=== PATIENT | male | born 1950 | race Caucasian/White ===

== ENCOUNTER 2022-06-03 11:27 | Emergency (ER) | payer OTHER ==
[~2022-06-03] VITALS: Ht 177.8 cm; Wt 74.8 kg
[2022-06-03] MEDS ORDERED: LOSA50 PO (13:04)
[2022-06-03] MEDS ORDERED: EUTHYROX125 MCG PO (13:04)
[2022-06-03] MEDS ORDERED: ATOR80 PO (13:04)
[2022-06-03] MEDS ORDERED: HYDCHL25 PO (13:05)
[2022-06-03] MEDS ORDERED: FISH OIL 1,2001 EAC4 PO (13:06)
[2022-06-03] MEDS ORDERED: CO Q10100 MG PO (13:07)
[2022-06-03 14:48] LABS: BASOPHILS ABSOLUTE AUTO 0.04 K/mm3 (0.00-0.23); BASOPHILS PERCENT AUTO 1 % (0-2); EOSINOPHILS ABSOLUTE AUTO 0.06 K/mm3 (0.00-0.68); EOSINOPHILS PERCENT AUTO 1 % (0-6); Hematocrit 47.1 % (37.0-53.0); Hemoglobin 16.7 g/dL (13.5-17.5); IMMATURE GRAN ABSOLUTE AUTO 0.01 K/mm3 (0.00-0.10); IMMATURE GRAN PERCENT AUTO 0 % (0-1); LYMPHOCYTES ABSOLUTE AUTO 1.68 K/mm3 (0.84-5.20); LYMPHOCYTES PERCENT AUTO 27 % (21-46); MONOCYTES PERCENT AUTO 10 % (4-13); Mean Corpuscular HGB 34.1 pg (26.0-34.0); Mean Corpuscular HGB Conc 35.5 g/dL (31.5-36.5); Mean Corpuscular Volume 96 fL (80-100); Mean Platelet Volume 8.9 fL (9.1-12.4); NEUTROPHILS ABSOLUTE AUTO 3.83 K/mm3 (1.96-9.15); NEUTROPHILS PERCENT AUTO 62 % (41-73); Platelet Count 267 K/mm3 (150-400); RDW Coefficient Variation 12.3 % (11.7-14.2); RDW Standard Deviation 43.8 fL (35.1-46.3); White Blood Cell Count 6.22 K/mm3 (4.00-11.30)
[2022-06-03 15:10] LABS: Magnesium, Blood 2.4 mg/dL (1.6-2.4)
[2022-06-03 15:13] LABS: Albumin/Globulin Ratio 1.2 (0.8-1.8); Bilirubin, Total 0.5 mg/dL (0.1-1.0); Bun/Creatinine Ratio 21.6 (12.0-20.0); Calcium, Blood 9.5 mg/dL (8.5-10.1); Creatinine, Blood 0.83 mg/dL (0.60-1.20); Globulin, Blood 3.3 g/dL (2.2-4.0); Potassium, Blood 4.1 mmol/L (3.5-5.5); Thyroid Stimulating Hormone 1.62 uIU/mL (0.360-4.800); Total Protein, Blood 7.3 g/dL (6.4-8.2)
[2022-06-03 15:37] LABS: Influenza A, PCR NEGATIVE (NEGATIVE); Influenza B, PCR NEGATIVE (NEGATIVE); Resp Syncytial Virus, PCR NEGATIVE (NEGATIVE); SARS-Cov-2 (COVID-19) PCR, MMC NEGATIVE (NEGATIVE)
== END 2022-06-03 15:40 | disposition home or self-care (01) ==
LOC: ER 11:27
PROVIDERS: Student in an Organized Health Care Education/Training Program
DX: R42 Dizziness and giddiness (principal); R26.81 Unsteadiness on feet; S01.91XD Laceration without foreign body of unspecified part of head, subsequent encounter; X58.XXXD Exposure to other specified factors, subsequent encounter; Z79.899 Other long term (current) drug therapy; Z79.82 Long term (current) use of aspirin
CPT/HCPCS: 0241U; 36415; 70450; 80053; 83735; 84443; 85025

== ENCOUNTER → 2023-10-29 | Outpatient (CLI) | payer MEDICARE ==
[~2023-10-29] MED LIST: ATOR80 PO; BENZ100A PO; CO Q10100 MG PO; EUTHYROX125 MCG PO; FISH OIL 1,2001 EAC4 PO; HYDCHL25 PO; LOSA50 PO; PRED5 PO
== END ==
LOC: LAB SHORT 07:09 → LAB 07:09
DX: R21 Rash and other nonspecific skin eruption (principal)
CPT/HCPCS: 88312